=== PATIENT | male | born 1965 | race Caucasian/White ===

== ENCOUNTER → 2017-02-12 | Outpatient (CLI) | payer OTHER ==
[~2017-02-12] MED LIST: ALBU2.5V11 NEB; ARIP10TA13 PO; AZIT250T89 PO; FAMO-79 PO; FLUT1DIS5 IH; PRED20TA PO
== END | disposition home or self-care (01) ==
LOC: CFH 13:06
PROVIDERS: ATTEND Internal Medicine
DX: R91.1 Solitary pulmonary nodule (principal); R06.09 Other forms of dyspnea; Q21.4 Aortopulmonary septal defect
CPT/HCPCS: 71250